=== PATIENT | female | born 1955 | race American Indian/Alaskan Native ===

== ENCOUNTER 2019-03-14 11:00 | Day surgery (SDC) | payer OTHER ==
[~2019-03-14 11:00] MED LIST: WATER FOR IRRIG STERILE IR ONE
--- NOTE | 2019-03-14 12:17 | Anesthesia Day of Surgery ---
Anesthesia Day of Surgery - Day of Surgery Patient Examined: Yes Patient H&P Reviewed: Yes Patient is NPO: Yes Beta Blockers: No
--- NOTE | 2019-03-14 12:19 | Anesthesia Consultation ---
Anesthesia Consult and Med Hx Date of service: 03/14/19 - Airway Anesthetic Teeth Evaluation: Good ROM Head & Neck: Adequate Mental/Hyoid Distance: Adequate Mallampati Class: Class II Intubation Access Assessment: Good - Pre-Operative Health Status ASA Pre-Surgery Classification: ASA3 Proposed Anesthetic Plan: MAC - Cardiovascular System Hx Cardia Arrhythmia: Yes (Unsure what kind; can climb stairs) - Gastrointestinal Hx Gastroesophageal Reflux Disease: Yes
[2019-03-14] MEDS ORDERED: NACL 0.9% 1000 ML 1,000 ML IV SCH (13:00)
[2019-03-14] MEDS ORDERED: DIPRIVAN 10 MG/ML IV ONE (13:14)
[2019-03-14] MEDS ORDERED: XYLOCAINE 2% INFILTRATI ONE (13:26)
--- NOTE | 2019-03-14 13:41 | Operative Report ---
Operative Report Operative Report: Date: 03/14/2019. Operative Report: Date of procedure: 03/14/2019. Procedure: Esophagogastroduodenoscopy with multiple mucosal biopsies Attending physician: Ruben Costello MD Front Sight Attacher: Ruben Costello MD Indication: Patient is a 63-year-old female who presented with a history of epigastric pain heartburn and indigestion with dysphagia earlyly satiety and anorexia and abnormal weight loss. An upper endoscopy is done to assess patient so that treatment may be directed based on the findings. Consent: Informed consent was obtained after advising the patient and family regarding nature of this procedure, its indications, potential benefits as well as possible complications including but not limited to bleeding perforation and adverse reaction to medication, infection as well as other cardiopulmonary complications. An informed written and verbal consent was then obtained after due opportunity was provided for questions and answers. Monitoring: Patient was monitored continuously with pulse oximetry and electrocardiographic recordings as well as blood pressure recordings. Vital signs remained stable throughout this procedure with no untoward events. Preoperative assessment: Patient was assessed immediately prior to this procedure for capacity to tolerate monitored anesthesia care and moderate sedation as well as general anesthesia. Patient's ASA classification is 2, Mallampati class is 2, Hyomental distance is 3. Instrument: Olympus video endoscope Medications: Propofol given intravenously in divided doses. For details please refer to anesthesia records. Description of procedure: Patient was placed in the left lateral decubitus position after achieving sedation, the endoscope was introduced into the esophagus under direct vision. It was then advanced beyond the esophagus into the stomach and then beyond the stomach into the duodenum and to the second portion of the duodenum. It was subsequently withdrawn with careful inspection of all mucosal surfaces with the following findings. Findings: The patient had shayla esophagitis and also, the Z line was irregular at 38 cm. the entire stomach appeared erythematous with multiple erosions and hematin distributed in sections of the stomach. Biopsies of the antrum were obtained for histopathology. The duodenum was normal to second portion. Impression: Shayla esophagitis Irregular Z line Severe erosive gastritis Gastric antral erythema Plan: Treat with fluconazole with initiating dose of 200 milligrams on day 1 followed by daily dose of 100 mg for a total of 14 days of treatment. Follow pathology report. Continue treatment with proton pump inhibitors and direct additional treatment based on the pathology report.
--- NOTE | 2019-03-14 13:42 | Discharge Summary ---
Short Stay Discharge Plan Activity: advance as tolerated Weight Bearing Status: Weight Bear as Tolerated Diet: regular Follow up with: DION VELIZ MD [Primary Care Provider] - 7 Days
[2019-03-14 15:08] VITALS: BP 114/62
== END 2019-03-14 11:01 | disposition home or self-care (01) ==
LOC: GIO 11:00
PROVIDERS: ATTEND Internal Medicine Gastroenterology
DX: K31.89 Other diseases of stomach and duodenum (principal); K21.0 Gastro-esophageal reflux disease with esophagitis; K29.70 Gastritis, unspecified, without bleeding; Z90.49 Acquired absence of other specified parts of digestive tract; Z90.710 Acquired absence of both cervix and uterus; Z79.82 Long term (current) use of aspirin; Z79.899 Other long term (current) drug therapy; Z98.890 Other specified postprocedural states
CPT/HCPCS: 43239; 88305; 88342; J2704

== ENCOUNTER 2021-01-12 11:57 | Outpatient (CLI) | payer MEDICARE, OTHER ==
--- NOTE | 2021-01-12 13:11 | XRay Report ---
BILATERAL KNEES, one view. INDICATION: Pain.. COMPARISON: None. FINDINGS: Single frontal radiographs of the bilateral knees was obtained. There is no evidence of acu te fracture or dislocation. Mild joint space narrowing within the left medial compartment is noted. M inimal osteoarthritic changes within the right lateral compartment. IMPRESSION: No evidence of acute osseous injury. Mild joint space narrowing with a left medial compartment and minimal osteoarthritic change within th e right lateral compartment. If pain persists, radiographs with additional views may be beneficial. Signer Name: Rubio Peres MD Signed: 01/12/2021 1:05 PM Workstation Name: [id number]
== END 2021-01-12 11:58 | disposition home or self-care (01) ==
LOC: XRAY 11:57
PROVIDERS: ATTEND Orthopaedic Surgery
DX: M17.0 Bilateral primary osteoarthritis of knee (principal)
CPT/HCPCS: 73565

== ENCOUNTER 2022-06-02 10:33 | Day surgery (SDC) | payer MEDICARE, OTHER ==
[~2022-06-02 10:33] MED LIST changes: +SODIUM CHLORIDE 0.9% 1000 ML 1,000 ML IV SCH; -WATER FOR IRRIG STERILE IR ONE
[2022-06-02] MEDS ORDERED: propofoL 200 MG/20 ML VIAL IV ONE (12:42)
--- NOTE | 2022-06-02 13:14 | Operative Report ---
Operative Report Operative Report: DATE: 06/02/2022 Esophagogastroduodenoscopy with multiple mucosal biopsies. ATTENDING PHYSICIAN: Ruben Costello M.D. [employer] ARCHITECT: Ruben Costello M.D. INDICATION: Patient is a 66 year old female who presents with history of recurrent dysphagia. An upper endoscopy is done to assess patient so that becka atment may be directed based on the findings. CONSENT: Informed consent was obtained after the patient was advised regarding the nature of this procedure, its indications, potential benefits as well as possible complications including but not limited to bleeding, perforation, adverse reaction to medications, infection as well as cardiopulmonary complications. An informed written and verbal consent was then obtained after due opportunity was provided for questions and answers. MONITORING: Patient monitored continuously with pulse oximetry, electrocardiographic recordings as well as automatic blood pressure recordings. Patient remained stable throughout the procedure with no untoward events. PREOPERATIVE ASSESSMENT: Patient was assessed immediately prior to this procedure for capacity to tolerate moderate sedation/monitored anesthesia care. [place] [employer] classification is 2. Mallampatti class is 2. Hyomental distance is 3. INSTRUMENT: Olympus video endoscope [id number] [id number]. MEDICATIONS: Propofol given intravenously in divided doses. For details, please refer to anesthesia records. DESCRIPTION OF PROCEDURE: Patient was placed in the left lateral decubitus position, after achieving sedation, the endoscope was introduced into the esophagus and advanced under direct visualization into the stomach and then to the second portion of the duodenum. Color texture mucosa and anatomy of the upper gastrointestinal tract was carefully examined with the endoscope which was then gently withdrawn with careful inspection of all mucosa surfaces. The patient tolerated the procedure well with no complications. After completion of the examination, patient was transferred to the recovery room. The preparation was fair. The following findings were noted. FINDINGS: Patient has severe nasir esophagitis. The Z line was regular 39 cm. Patient had gastric antral erosions. Biopsies of the antrum were obtained for histopathology. The duodenum was normal to the second portion. . IMPRESSION: Severe candidate esophagitis. Irregular Z line Gastric antral erosions with erythema. PLAN: Treat with Fluconazole 200 mg daily for 14 days follow-up pathology report and direct additional treatment based on pathology report.
--- NOTE | 2022-06-02 13:26 | Anesthesia Consultation ---
Anesthesia Consult and Med Hx Date of service: 06/02/22 - Airway Anesthetic Teeth Evaluation: Dentures (upper), Partials (lower) ROM Head & Neck: Adequate Mental/Hyoid Distance: Adequate Mallampati Class: Class I Intubation Access Assessment: Good - Pre-Operative Health Status ASA Pre-Surgery Classification: ASA3 Proposed Anesthetic Plan: MAC - Pulmonary Hx Smoking: No Hx Respiratory Symptoms: No - Cardiovascular System Hx Hypertension: Yes Hx Cardia Arrhythmia: Yes (hx palpitations w/ ongoing cardiac w/u; asymptomatic today) Hx Peripheral Vascular Disease: No (hx DVT, Eliquis held 5 days) - Gastrointestinal Hx Gastroesophageal Reflux Disease: Yes (nasir esophagitis) - Endocrine Hx Renal Disease: Yes (CKD, followed by crisis intervention specialist) Hx Liver Disease: No Hx Insulin Dependent Diabetes: No Hx Non-Insulin Dependent Diabetes: No - Additional Comments Anesthesia Medical History Comments: Late entry. Patient evaluated prior to procedure.
--- NOTE | 2022-06-02 13:26 | Anesthesia Day of Surgery ---
Anesthesia Day of Surgery - Day of Surgery Patient Examined: Yes (evaluated prior to procedure) Patient H&P Reviewed: Yes Patient is NPO: Yes
--- NOTE | 2022-06-02 14:23 | Post Anesthesia Evaluation ---
- Post Anesthesia Evaluation Patient Participated: Yes Airway Patent: Yes Stable Respiratory Function: Yes Nausea/Vomiting: No Temp > 96.8F: Yes Pain Manageable: Yes Adequeate Hydration: Yes Anesthesia Complications: No
[2022-06-02 16:16] VITALS: BP 105/67
== END 2022-06-02 10:34 | disposition home or self-care (01) ==
LOC: GIO 10:33
PROVIDERS: ATTEND Internal Medicine Gastroenterology
DX: R13.10 Dysphagia, unspecified (principal); K31.9 Disease of stomach and duodenum, unspecified; K21.00 Gastro-esophageal reflux disease with esophagitis, without bleeding; I42.9 Cardiomyopathy, unspecified; I12.9 Hypertensive chronic kidney disease with stage 1 through stage 4 chronic kidney disease, or unspecified chronic kidney disease; N18.9 Chronic kidney disease, unspecified; Z98.890 Other specified postprocedural states; Z79.899 Other long term (current) drug therapy; Z79.82 Long term (current) use of aspirin; Z90.49 Acquired absence of other specified parts of digestive tract; Z90.710 Acquired absence of both cervix and uterus; Z86.718 Personal history of other venous thrombosis and embolism
CPT/HCPCS: 43239; 88305; 88342; J2704; J7030